=== PATIENT | male | born 1965 | race Caucasian/White ===

== ENCOUNTER 2017-05-22 21:42 | Emergency (ER) | payer MEDICAID ==
[~2017-05-22] VITALS: Ht 177.8 cm; Wt 65.8 kg
--- NOTE | 2017-05-22 21:45 | NUR ---
Dr. Hargrove evaluating patient
[2017-05-22 21:46] VITALS: BP 135/86
[2017-05-22] MEDS ORDERED: HYDROcodone/APAP 5/325 MG 1 TAB TAB PO ONE (22:10)
[2017-05-22] MEDS ORDERED: KETOROLAC 30 MG/ML VIAL IM ONE (22:10)
--- NOTE | 2017-05-22 22:31 | NUR ---
PT SKIP ([facility]) BLS TO BED 5
--- NOTE | 2017-05-22 22:34 | NUR ---
PT BIBA RT SIDE HEAD PAIN S/P MEC FALL-NO LOC/KO AT [facility] THEN HE HAD A SZ, PT STS HX OF SEIZURE, AN HOUR AGO, WITH PAIN 5/10. SMALL LUMP NOTED TO RT SIDE OF HEAD, PATIENT ALERT, AWAKE , ORIENTED. RT EYE 3, LT EYE 4, PT DENIES N/V/D; SKIN IS INTACT, PALE/WARM/DRY; AAOX4, , WITH EVEN AND STEADY GAIT; LUNGS CLEAR BL, BREATHING UNLABORED; HR EVEN AND REGULAR, BL PERIPHERAL PULSES PRESENT AND STRONG ; BS ACTIVE X4, NO TENDERNESS TO PALPATION. PT DENIES ANY FEVER, CP, SOB, OR COUGH AT THIS TIME; PT STATES 0/10 PAIN AT THIS TIME; VSS; PATIENT POSITIONED FOR COMFORT; HOB ELEVATED; BEDRAILS UP X2; BED DOWN.
[2017-05-22] MEDS ORDERED: PHEN100C3 PO (22:40)
[2017-05-22 22:41] LABS: ANION GAP 12.7 (8-16); CALCIUM 7.9 mg/dL (8.5-10.1); CARBON DIOXIDE 27.1 mmol/L (21-32); CREATININE 1.1 mg/dL (0.7-1.3); POTASSIUM 3.8 mmol/L (3.5-5.1)
--- NOTE | 2017-05-22 22:41 | NUR ---
PT TAKEN TO CT
--- NOTE | 2017-05-23 00:30 | NUR ---
Patient discharged with v/s stable. Written and verbal after care instructions given and explained. Patient alert, oriented and verbalized understanding of instructions. Ambulatory with steady gait. All questions addressed prior to discharge. ID band removed. Patient advised to follow up with PMD. Rx of NORCO 5/325 given. Patient educated on indication of medication including possible reaction and side effects. Opportunity to ask questions provided and answered. 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
--- NOTE | 2017-05-23 00:30 | NUR ---
PT GIVEN HOMELESS PACKET. PT STATES HE WILL WAIT IN THE LOBBY FOR ACCESSIONER FOR ASSISTANCE. Patient is awake, alert and oriented. Ambulatory with steady gait. Refuses offer of care home placement. Given list of available shelters in surrounding areas.
[2017-05-23 00:37] VITALS: BP 119/81
== END 2017-05-23 00:30 | disposition home or self-care (01) ==
LOC: MED 21:42
DX: S16.1XXA Strain of muscle, fascia and tendon at neck level, initial encounter (principal); G40.909 Epilepsy, unspecified, not intractable, without status epilepticus; S09.90XA Unspecified injury of head, initial encounter; W19.XXXA Unspecified fall, initial encounter; Y93.89 Activity, other specified; Y92.89 Other specified places as the place of occurrence of the external cause; Y99.8 Other external cause status
CPT/HCPCS: 36415; 70450; 72125; 80048; 80185; 93005; 96372; 99285; J1885